=== PATIENT | female | born 1945 | race Caucasian/White ===

== ENCOUNTER 2017-02-14 21:27 | Emergency (ER) | payer OTHER ==
[2017-02-14] MEDS ORDERED: diphenhydrAMINE HCL 50 MG CAPSULE PO ONE (21:36)
--- NOTE | 2017-02-14 21:36 | PDOC ---
History of Present Illness - General History Source: Patient Exam Limitations: No Limitations - History of Present Illness Initial Comments: 02/14/17 21:44 The patient is a 71 year old female, with a significant past medical history of hypertension, hyperlipidemia, and breast cancer, who presents to the emergency department complaining of a rash s/p bug bite at approximately 13:00. Patient reports she was outside and was bitten by a small black bug with a stinger. Initially patient reports she noted a small bump where the bug bit her with minimal erythema. As the day went on the patient reports associated itching and increased erythema, and warmth at the site of the bite. She denies any associated fever or chills. She denies any chest pain, shortness of breath, diaphoresis, or palpitations. She denies any recent travel or sick contacts. Patient reports she has not taken anything for the rash. PAST MEDICAL HISTORY: HTN, HLD, Breast CA PAST SURGICAL HISTORY: Oophorectomy FAMILY HISTORY: no pertinent history SOCIAL HISTORY: Pt lives with family and is employed. MEDICATIONS: reviewed ALLERGIES: As per nursing notes PCP: Dr. Chris General: No fevers or chills, no weakness, no weight loss HEENT: No change in vision. No sore throat,. No ear pain CardioVascular: No chest pain or shortness of breath Respiratory: No cough, or wheezing. Gastrointestinal: no nausea, vomiting, diarrhea or constipation, No rectal bleeding Genitourinary: No dysuria, hematuria, or frequency Musculoskeletal: No joint or muscle pain or swelling Neurologic: No headache, vertigo, dizziness or loss of consciousness Psychiatric: No depression Skin: Yes: +Rash to the right forearm, +erythema and warmth to the right forearm. No other rashes or easy bruising Endocrine: No increased thirst or abnormal weight change Allergic: Yes: +Rash to the right forearm. No other skin or latex allergy All other systems reviewed and normal GENERAL: The patient is awake, alert, and fully oriented, in no acute distress. HEAD: Normal with no signs of trauma. EYES: Pupils equal, round and reactive to light, extraocular movements intact, sclera anicteric, conjunctiva clear. EXTREMITIES: Normal range of motion, no edema. NEUROLOGICAL: Normal speech, normal gait. PSYCH: Normal mood, normal affect. SKIN: Area of erythema with slight edema and mild increase in warmth in the right proximal forearm. There is no tenderness on palpation. There is no ascending lymphangitis or lymphadenopathy. Otherwise Warm, Dry, normal turgor, no rashes or lesions noted. <Keke Moran - Last Filed: 02/14/17 21:45> - General History Source: Patient Exam Limitations: No Limitations - History of Present Illness Initial Comments: 02/14/17 21:49 A portion of this note was documented by scribe services under my direction. I have reviewed the details of the note, within reason, and agree with the documentation. The case summary and management plan written by me. Assessment and plan: This is a 71-year-old female who comes in his complaining of some redness and swelling after being stung by an insect. Patient appears to be experiencing an ALLERGIC reaction. It does not appear to be cellulitic component of it at this time. However patient was given a prescription for Bactrim in case her symptoms worsened. Patient has a primary care doctor she can follow-up with. <Pauline Jama I - Last Filed: 02/14/17 21:50> - General Chief Complaint: Bite Stated Complaint: BIT BY BUG TO RIGHT FOREARM Time Seen by Provider: 02/14/17 21:32 Past History <Keke Moran - Last Filed: 02/14/17 21:45> - Past Medical History Cancer: Yes (BREAST) HTN: Yes Hypercholesterolemia: Yes - Surgical History Abdominal Surgery: Yes (oophorectomy) Orthopedic Surgery: Yes (s/p orthopedic surgery) - Immunization History Td Vaccination: Yes Immunization Up to Date: Yes - Psycho/Social/Smoking Cessation Hx Anxiety: No Suicidal Ideation: No Smoking Status: No Smoking History: Former smoker Years of Tobacco Use: 12 Have you smoked in the past 12 months: No Number of Cigarettes Smoked Daily: 0 Hx Alcohol Use: Yes Drug/Substance Use Hx: No Substance Use Type: Alcohol <Pauline Jama I - Last Filed: 02/14/17 21:50> - Past Medical History Allergies/Adverse Reactions: Allergies Allergy/AdvReac Type Severity Reaction Status Date / Time latex Allergy Verified 02/14/17 21:29 Penicillins Allergy Verified 02/14/17 21:29 Home Medications: Ambulatory Orders Losartan 50Mg/Hctz 12.5MG [Hyzaar] 1 tab PO DAILY 09/30/11 Rosuvastatin Calcium [Crestor] 5 mg PO DAILY 02/14/17 Sulfamethoxazole/Trimethoprim [Bactrim DS -] 1 tab PO BID #14 tablet 02/14/17 *Physical Exam - Vital Signs Last Vital Signs Temp Pulse Resp BP Pulse Ox 98.4 F 92 H 16 161/83 99 02/14/17 21:32 02/14/17 21:32 02/14/17 21:32 02/14/17 21:32 02/14/17 21:32 <Keke Moran - Last Filed: 02/14/17 21:45> ED Treatment Course - Medications Given in the ED: ED Medications Discontinued Medications Generic Name Dose Route Start Last Admin Trade Name Rose PRN Reason Stop Dose Admin Diphenhydramine HCl 25 mg 02/14/17 21:36 02/14/17 21:39 Benadryl - PO 02/14/17 21:37 25 mg ONCE ONE Administration <Keke Moran - Last Filed: 02/14/17 21:45> *DC/Admit/Observation/Transfer - Attestations Scribe Attestion: 02/14/17 21:45 Documentation prepared by Keke Moran, acting as medical parasitologist for Pauline Jama MD. <Keke Moran - Last Filed: 02/14/17 21:45> - Discharge Dispostion Admit: No <Pauline Jama I - Last Filed: 02/14/17 21:50> Diagnosis at time of Disposition: Allergic reaction Qualifiers: Encounter type: initial encounter Qualified Code(s): T78.40XA - Allergy, unspecified, initial encounter - Discharge Dispostion Disposition: HOME Condition at time of disposition: Stable - Prescriptions Prescriptions: Sulfamethoxazole/Trimethoprim [Bactrim DS -] 1 tab PO BID #14 tablet - Referrals Referrals: Yamel Chris MD [Primary Care Provider] - - Patient Instructions Additional Instructions: At nighttime U can take Benadryl one tablet every 4 hours if needed for itching and swelling. During the day take Lorie or Claritin until symptoms resolve. I sent a prescription to your pharmacy for Bactrim if you develop a fever or red streaks going up her arm or increased pain get the prescription for the Bactrim filled and take as instructed. Return to the emergency department immediately with ANY new, persistent or worsening symptoms. Continue any medications as previously prescribed by your physician. You should follow up with your primary doctor as soon as possible regarding today's emergency department visit. . Please make sure your doctor reviews the results of your emergency evaluation. Thank you for coming to the Emergency Department today for your care. It was a pleasure to see you today. Please note that your evaluation is INCOMPLETE until you follow-up with your doctor.
[2017-02-14] MEDS ORDERED: diphenhydrAMINE HCL 25 MG CAPSULE (FP) PO ONE (21:37)
[2017-02-14 21:45] VITALS: BP 161/83; PULSE 92; TEMP 98.4
== END 2017-02-14 21:44 | disposition home or self-care (01) ==
LOC: FER 21:27
DX: S50.861A Insect bite (nonvenomous) of right forearm, initial encounter (principal); T78.40XA Allergy, unspecified, initial encounter; Z85.3 Personal history of malignant neoplasm of breast; Z87.891 Personal history of nicotine dependence; I10 Essential (primary) hypertension; E78.00 Pure hypercholesterolemia, unspecified; W57.XXXA Bitten or stung by nonvenomous insect and other nonvenomous arthropods, initial encounter; Y93.89 Activity, other specified; Y92.9 Unspecified place or not applicable
CPT/HCPCS: 99281-25

== ENCOUNTER 2018-09-02 20:11 | Day surgery (SDC) | payer OTHER ==
--- NOTE | 2018-09-02 20:12 | PDOC ---
History of Present Illness - General History Source: Patient Exam Limitations: No Limitations - History of Present Illness Initial Comments: 09/02/18 21:32 The patient is a 72 year old female, with a significant past medical history of HTN, HLD, and breast cancer (23 years ago) who presents to the emergency department with 2 days of abdominal pain. The patient describes her pain as discomfort that started in her periumbilical region and radiated to her right lower quadrant. The patient states her pain is sensitive only to touch. The patient reports she went dancing on Tuesday and was twisting and dancing throughout the night. The patient denies fever, chills, nausea, vomit, diarrhea or constipation. The patient denies dysuria, frequency, urgency or hematuria. Allergies: latex, penicillins, Past surgical history:None reported Social history: no alcohol use. Former smoker PCP: Yamel Silva <Krystyna Melara - Last Filed: 09/02/18 21:48> <Coral Rosenberg - Last Filed: 09/03/18 05:35> - General Chief Complaint: Pain, Acute Stated Complaint: RLQ ABD PAIN Past History <Krystyna Melara - Last Filed: 09/02/18 21:48> - Past Medical History Cancer: Yes (BREAST) HTN: Yes Hypercholesterolemia: Yes - Surgical History Abdominal Surgery: Yes (oophorectomy) Orthopedic Surgery: Yes (s/p orthopedic surgery) - Immunization History Td Vaccination: Yes Immunization Up to Date: Yes - Suicide/Smoking/Psychosocial Hx Smoking Status: No Smoking History: Former smoker Years of Tobacco Use: 12 Have you smoked in the past 12 months: No Number of Cigarettes Smoked Daily: 0 Hx Alcohol Use: Yes Drug/Substance Use Hx: No Substance Use Type: Alcohol <Coral Rosenberg - Last Filed: 09/03/18 05:35> - Past Medical History Allergies/Adverse Reactions: Allergies Allergy/AdvReac Type Severity Reaction Status Date / Time latex Allergy Verified 02/14/17 21:29 Penicillins Allergy Verified 02/14/17 21:29 Home Medications: Ambulatory Orders Losartan 50Mg/Hctz 12.5MG [Hyzaar] 1 tab PO DAILY 09/30/11 Rosuvastatin Calcium [Crestor] 10 mg PO DAILY 02/14/17 Review of Systems - Review of Systems Able to Perform ROS?: Yes Comments:: 09/02/18 21:33 GENERAL/CONSTITUTIONAL: No fever or chills. No weakness. HEAD, EYES, EARS, NOSE AND THROAT: No change in vision. No ear pain or discharge. No sore throat. CARDIOVASCULAR: No chest pain or shortness of breath. RESPIRATORY: No cough, wheezing, or hemoptysis. GASTROINTESTINAL: No nausea, vomiting, diarrhea or constipation. GENITOURINARY: No dysuria, frequency, or change in urination. ABDOMEN: (+) periumbilical discomfort. (+) RLQ discomfort. MUSCULOSKELETAL: No joint or muscle swelling or pain. No neck or back pain. SKIN: No rash NEUROLOGIC: No headache, vertigo, loss of consciousness, or change in strength/ sensation. ENDOCRINE: No increased thirst. No abnormal weight change. HEMATOLOGIC/LYMPHATIC: No anemia, easy bleeding, or history of blood clots. ALLERGIC/IMMUNOLOGIC: No hives or skin allergy. All Other Systems: Reviewed and Negative <Krystyna Melara - Last Filed: 09/02/18 21:48> *Physical Exam - Vital Signs Last Vital Signs Temp Pulse Resp BP Pulse Ox 98 F 98 H 16 158/72 100 09/02/18 20:16 09/02/18 20:16 09/02/18 20:16 09/02/18 20:16 09/02/18 20:16 - Physical Exam Comments: 09/02/18 21:33 GENERAL: Awake, alert, and fully oriented, in no acute distress HEAD: No signs of trauma EYES: PERRLA, EOMI, sclera anicteric, conjunctiva clear ENT: Auricles normal inspection, hearing grossly normal, nares patent, oropharynx clear without exudates. Moist mucosa NECK: Normal ROM, supple, no lymphadenopathy, JVD, or masses LUNGS: Breath sounds equal, clear to auscultation bilaterally. No wheezes, and no crackles HEART: Regular rate and rhythm, normal S1 and S2, no murmurs, rubs or gallops ABDOMEN: (+) tenderness to palpation of RLQ without masses.(+) moderate direct tenderness, minimal rebound tenderness RLQ. No reproduction of pain with contraction of abdominal muscles. Distended, Soft, nontender, normoactive bowel sounds. No guarding. No masses EXTREMITIES: Normal range of motion, no edema. No clubbing or cyanosis. No cords, erythema, or tenderness NEUROLOGICAL: Cranial nerves II through XII grossly intact. Normal speech, normal gait SKIN: Warm, Dry, normal turgor, no rashes or lesions noted. <Krystyna Melara - Last Filed: 09/02/18 21:48> Moderate Sedation - Procedure Monitoring Vital Signs: Procedure Monitoring Vital Signs Temperature 98 F 09/02/18 20:16 Pulse Rate 98 H 09/02/18 20:16 Respiratory Rate 16 09/02/18 20:16 Blood Pressure 158/72 09/02/18 20:16 O2 Sat by Pulse Oximetry (%) 100 09/02/18 20:16 <Krystyna Melara - Last Filed: 09/02/18 21:48> ED Treatment Course - LABORATORY CBC & Chemistry Diagram: 09/02/18 21:30 09/02/18 21:30 - ADDITIONAL ORDERS Additional order review: Laboratory Results 09/02/18 20:15 Urine Color Yellow Urine Appearance Clear Urine pH 7.0 Urine Protein Negative Urine Glucose (UA) Negative Urine Ketones Trace Urine Blood Trace-intact Urine Nitrite Negative Urine Bilirubin Negative Urine Urobilinogen 0.2 Ur Leukocyte Esterase 2+ Urine WBC (Auto) 10-20 Urine RBC (Auto) 2-5 U Epithel Cells (Auto) Few <Krystyna Melara - Last Filed: 09/02/18 21:48> - LABORATORY CBC & Chemistry Diagram: 09/02/18 21:30 09/02/18 21:30 <Coral Rosenberg - Last Filed: 09/03/18 05:35> Progress Note - Progress Note Progress Note: Documentation has been prepared under my direction and personally reviewed by me in its entirety. I attest that this documented accurately reflects all work, treatment, procedures and medical decision making performed by me. <Coral Rosenberg - Last Filed: 09/03/18 05:35> Medical Decision Making - Medical Decision Making 09/03/18 00:32 As noted above, 72-year-old woman with a history of HTN/HLD present with 2 days of increasing discomfort in her abdomen. No other associated symptoms. Exam as noted. Laboratory evaluation including CBC/ chemistry profile/INR/UA was essentially normal except for BUN 23/cre 0.8 Abd/pelvic CT performed :preliminary interpretation by Imaging ton cylinder inspector- Enlarged appendix up to 1.2 cm with wall thickening and surrounding inflammatory changes compatible with acute appendicitis Results discussed with the patient. She is unaware of the type of allergic reaction she experienced with penicillin(she was young child) but she has had Keflex in the past without allergic reaction . Rocephin 1 gram IV ordered Case discussed with patient's PMD, Dr Chris. She will admit patient with general surgery consult to [facility]. Case discussed with Dr Hernandez who will see the patient at [facility] 12 lead EKG performed: NSR at 92/min Intervals, axis, waveforms are all normal. No evidence of acute ST or T wave abnormalities. No evidence of cardiac arrythmia <Coral Rosenberg - Last Filed: 09/03/18 05:35> *DC/Admit/Observation/Transfer - Attestations Physician Attestion: 09/02/18 21:43 Documentation prepared by Krystyna Melara, acting as medical pathologist for Coral Rosenberg MD <Krystyna Melara - Last Filed: 09/02/18 21:48> - Discharge Dispostion Decision to Admit order: Yes <Coral Rosenberg - Last Filed: 09/03/18 05:35> Diagnosis at time of Disposition: Acute appendicitis Qualifiers: Acute appendicitis type: with localized peritonitis Appendicitis gangrene presence: without gangrene Appendicitis perforation presence: without perforation Appendicitis abscess presence: without abscess Qualified Code(s): K35.30 - Acute appendicitis with localized peritonitis, without perforation or gangrene - Discharge Dispostion Condition at time of disposition: Stable
[2018-09-02 21:08] LABS: EPI CELLS FEW /HPF
[2018-09-02 21:41] LABS: BASO % 0.4 % (0-2.0); EOS % 1.5 % (0-4.5); HEMATOCRIT 40.6 % (32.4-45.2); HEMOGLOBIN 13.4 GM/dl (10.7-15.3); LYMPH % 35.1 % (8-40); MCH 30.1 pg (25.7-33.7); MCHC 32.9 g/dl (32.0-36.0); MEAN CELL VOLUME 91.4 fl (80-96); MEAN PLT VOLUME 8.6 fl (7.5-11.1); MONO % 9.3 % (3.8-10.2); NEUT % 53.7 % (42.8-82.8); PLATELET COUNT 243 K/MM3 (134-434); RBC 4.44 M/mm3 (3.60-5.2); RDW 13.1 % (11.6-15.6); WHITE BLOOD COUNT 6.8 K/mm3 (4.0-10.8)
[2018-09-02 21:50] LABS: INR 1.07 (0.82-1.09)
[2018-09-02 21:58] LABS: ALBUMIN 3.8 g/dl (3.4-5.0); ALK PHOS 83 U/L (45-117); ANION GAP 10 MMOL/L (8-16); BILIRUBIN,TOTAL 0.6 mg/dl (0.2-1); BLOOD UREA NITROGEN 23 mg/dl (7-18); CALCIUM 8.8 mg/dl (8.5-10); CHLORIDE 103 mmol/L (98-107); CO2 26 mmol/L (21-32); CREATININE 0.8 mg/dl (0.55-1.3); GLUCOSE,RANDOM 109 mg/dl (74-106); SGOT/AST 19 U/L (15-37); SGPT/ALT 15 U/L (13-61); SODIUM 139 mmol/L (136-145); TOT PROT 6.2 g/dl (6.4-8.2)
[2018-09-02] MEDS ORDERED: SODIUM CHLORIDE 1,000 ML IV STA (23:08)
[2018-09-03] MEDS ORDERED: CEFTRIAXONE 1 GM in DEXTROSE 5%-WATER - 100 ML IVPB ONE (00:26)
[2018-09-03] MEDS ORDERED: HYDROmorphone HCL CARPU-JECT 1 MG/1 ML DISP.SYRIN IM PRN (00:26)
[2018-09-03] MEDS ORDERED: cefTRIAXone SODIUM 1 GM VIAL ONE (00:26)
[2018-09-03] MEDS ORDERED: D5-1/2NS+10 MEQ KCL - 10 MEQ/1,000 ML INFUS.BAG IV SCH (00:30)
[2018-09-03] MEDS: METOPROLOL TARTRATE 25 MG TABLET (FP) PO SCH ×3 (07:58→21:42)
--- NOTE | 2018-09-03 08:00 | HP ---
Admitting History and Physical - Admission Chief Complaint: right lower quadrant abdominal pain History of Present Illness: 72 yo female in her usual state of health developed over the past 3 days right lower quadrant abdominal pain associated with complaints of not feeling well. She was evaluated in ER and diagnosed with appendicitis. There was no fever, nausea of vomiting History Source: Patient Limitations to Obtaining History: No Limitations - Past Medical History Cardiovascular: Yes: HTN, Hyperlipdemia Reproductive: Yes: Postmenopausal ...: No Psych: Yes: Anxiety - Past Surgical History Past Surgical History: Yes: Mastectomy (left lumpectomy, and lymphadenectomy left axilla), Oopherectomy (bilateral) Additional Past Surgical History: right THR, Right shoulder repair - Advance Directives Advance Directives: Yes: Living Will, Health Care Proxy - Smoking History Smoking history: Former smoker Have you smoked in the past 12 months: No Aproximately how many cigarettes per day: 0 If you are a former smoker, when did you quit?: 1972 - Alcohol/Substance Use Hx Alcohol Use: Yes - Social History Usual Living Arrangement: Yes: With Spouse History of Recent Travel: No Home Medications - Allergies Allergies/Adverse Reactions: Allergies Allergy/AdvReac Type Severity Reaction Status Date / Time latex Allergy Verified 02/14/17 21:29 Penicillins Allergy Verified 02/14/17 21:29 Sulfa (Sulfonamide Allergy Verified 09/03/18 08:09 Antibiotics) sulfa Allergy Intermediate Uncoded 09/03/18 08:09 - Home Medications Home Medications: Ambulatory Orders Losartan 50Mg/Hctz 12.5MG [Hyzaar] 1 tab PO DAILY 09/30/11 Rosuvastatin Calcium [Crestor] 10 mg PO DAILY 02/14/17 Review of Systems - Review of Systems Constitutional: reports: Other ("not feeling well") Eyes: reports: No Symptoms HENT: reports: No Symptoms Neck: reports: No Symptoms Cardiovascular: reports: No Symptoms Respiratory: reports: No Symptoms Gastrointestinal: reports: Abdominal Pain Genitourinary: reports: No Symptoms Breasts: reports: No Symptoms Reported Integumentary: reports: Other (atopic dermatitis lesions right shoulder and anterior abdomen) Neurological: reports: No Symptoms Endocrine: reports: No Symptoms Psychiatric: reports: No Symptoms Physical Examination Vital Signs: Vital Signs Temperature 98 F 09/03/18 07:22 Pulse Rate 91 H 09/03/18 07:22 Respiratory Rate 18 09/03/18 07:22 Blood Pressure 171/78 H 09/03/18 07:22 O2 Sat by Pulse Oximetry (%) 96 09/03/18 06:00 Constitutional: Yes: Well Nourished, No Distress, Calm Eyes: Yes: WNL HENT: Yes: Atraumatic, Normocephalic Neck: Yes: Supple, Trachea Midline Cardiovascular: Yes: Regular Rate and Rhythm, S1, S2 Respiratory: Yes: Regular, CTA Bilaterally Gastrointestinal: Yes: Normal Bowel Sounds, Soft, Abdomen, Obese, Tenderness ( on the right lower quadrant, rebound tenderness in McBurney point) Musculoskeletal: Yes: WNL Extremities: Yes: Other (varicose veins). No: Calf Tenderness Edema: No Peripheral Pulses WNL: Yes Integumentary: Yes: Rash (right shoulder and abdominal rash -old due to atopic dermatitis) Neurological: Yes: Alert, Oriented Psychiatric: Yes: Alert, Oriented Labs: CBC, BMP 09/02/18 21:30 09/02/18 21:30 Imaging - Results X-ray: Other (read by me: no pleural effusin , no infiltrate, no mass) Cat Scan: Other (Ct scan of the abdomen official reading pending) EKG: Other (nsr, 92 b/min, ROBERT, poor R wave progression, non specific ST-T changes, unchanged complared to previous EKG) Problem List - Problems (1) Acute appendicitis Assessment/Plan: NPO D5 1/2 and 10 Charlotte KCL at 75 cc/hr surgical consult Metoprolol 25 mg po bid, hold Losartan Code(s): K35.80 - UNSPECIFIED ACUTE APPENDICITIS Qualifiers: Acute appendicitis type: with localized peritonitis Appendicitis gangrene presence: without gangrene Appendicitis perforation presence: without perforation Appendicitis abscess presence: without abscess Qualified Code(s) : K35.30 - Acute appendicitis with localized peritonitis, without perforation or gangrene (2) HTN (hypertension) Code(s): I10 - ESSENTIAL (PRIMARY) HYPERTENSION (3) Breast cancer Assessment/Plan: S/p lumpectomy requires DVT prophylaxis Code(s): C50.919 - MALIGNANT NEOPLASM OF UNSP SITE OF UNSPECIFIED FEMALE BREAST Assessment/Plan 72 yo female with PMH of HTN, Dyslipidemia and Breast cancer, normal cardiac EF within the past year( as per patient) The patient is scheduled for appendectomy. The patient sis CLASS II ASA medically clear for surgery.
[2018-09-03] MEDS ORDERED: PROPOFOL 20 ML ONE (08:49)
[2018-09-03] MEDS ORDERED: ROCURONIUM BROMIDE 50 MG/5 ML VIAL ONE (08:49)
[2018-09-03] MEDS ORDERED: MIDAZOLAM HCL 2 MG/2 ML SINGLE DOSE VIAL ONE (08:49)
[2018-09-03] MEDS ORDERED: SUCCINYLCHOLINE CHLORIDE 200 MG/10 ML VIAL ONE (08:49)
[2018-09-03 09:51] LABS: ALBUMIN 3.8 g/dl (3.4-5.0); ALK PHOS 74 U/L (45-117); ANION GAP 11 MMOL/L (8-16); BILIRUBIN,TOTAL 0.8 mg/dl (0.2-1); BLOOD UREA NITROGEN 14 mg/dl (7-18); CALCIUM 8.9 mg/dl (8.5-10); CHLORIDE 104 mmol/L (98-107); CO2 26 mmol/L (21-32); CREATININE 0.7 mg/dl (0.55-1.3); GLUCOSE,RANDOM 105 mg/dl (74-106); POTASSIUM 3.6 mmol/L (3.5-5.1); SGOT/AST 19 U/L (15-37); SGPT/ALT 15 U/L (13-61); SODIUM 141 mmol/L (136-145); TOT PROT 6.4 g/dl (6.4-8.2)
[2018-09-03] MEDS ORDERED: NEOSTIGMINE METHYLSULFATE 0.5 MG/ML - 10 ML MDV ONE (10:43)
[2018-09-03] MEDS ORDERED: CEFTRIAXONE 1 GM in DEXTROSE 5%-WATER - 50 ML IVPB ONE (10:45)
[2018-09-03] MEDS ORDERED: cefTRIAXone SODIUM 1 GM VIAL IVPB ONE (10:46)
[2018-09-03] MEDS ORDERED: GLYCOPYRROLATE 0.2 MG/1 ML VIAL ONE (10:47)
[2018-09-03] MEDS ORDERED: ONDANSETRON 4 MG/2 ML VIAL IVPUSH PRN (11:30)
[2018-09-03] MEDS ORDERED: LACTATED RINGERS SOLUTION 1,000 ML IV SCH (11:30)
[2018-09-03] MEDS ORDERED: LABETALOL HCL 5 MG/1 ML (100MG/20 ML VIAL) IVPUSH ONE (11:31)
--- NOTE | 2018-09-03 12:01 | CONS ---
DATE OF CONSULTATION: 09/03/2018 REFERRING PHYSICIAN: Yamel Chris MD REASON FOR REFERRAL: Acute appendicitis. BRIEF HISTORY: This is a 72-year-old female with a 3-day history of progressive abdominal discomfort. She presented to the emergency room at [facility] and CT demonstrated findings consistent with acute appendicitis. PAST MEDICAL HISTORY: Significant for hyperlipidemia, hypertension. PAST SURGICAL HISTORY: She has had a left lumpectomy with lymphadenectomy on the left side, followed by radiation and chemotherapy. She has had bilateral oophorectomy done laparoscopically. She has had right hip surgery as well as right and left shoulder surgery. ALLERGIES: PENICILLIN. Patient had a dose of Rocephin without issues in [place] [facility]. SOCIAL HISTORY: The patient does not smoke. She drinks socially. PHYSICAL EXAMINATION: Abdomen is soft, nondistended. It is tender in the right lower quadrant with guarding, plus/minus rebound. IMPRESSION/PLAN: Acute appendicitis. This is a 72-year-old female with radiographic findings for acute appendicitis. She will undergo an appendectomy. The patient was seen at the [place] ER and that hospital does not do emergent operations and, therefore, the patient will be transferred to [facility]. Following the operation, she will most likely be transferred back to [place] for further management and care. CRYSTAL MOY M.D. [id number] cc: Yamel Chris MD
[2018-09-03] MEDS ORDERED: D5-1/2NS+20 MEQ KCL - 20 MEQ/1,000 ML INFUS.BAG IV SCH (13:00)
[2018-09-03] MEDS ORDERED: morphine CARPU-JECT 4 MG/1 ML DISP.SYRIN IVPB PRN ×2 (13:07→13:08)
[2018-09-03] MEDS ORDERED: oxyCODONE HCL 5 MG TABLET PO PRN (13:08)
--- NOTE | 2018-09-03 18:34 | OP ---
DATE OF OPERATION: 09/03/2018 PREOPERATIVE DIAGNOSIS: Acute appendicitis. POSTOPERATIVE DIAGNOSIS: Acute appendicitis. PROCEDURE: Laparoscopic appendectomy, laparoscopic partial colectomy, laparoscopic lavage. SURGEON: Juan Hernandez MD [employer] OPERATOR: None. ANESTHESIA: Nestor Gupta MD (general0 ESTIMATED BLOOD LOSS: Minimal. SPECIMEN: Appendix with portion of cecum. INDICATION FOR PROCEDURE: This is a 72-year-old female admitted with radiographic findings consistent with acute appendicitis and right lower quadrant pain. She is here for appendectomy. Patient identified, appropriately positioned on the operating room table. After placement of general anesthesia, the abdomen prepped and draped in the usual sterile fashion with ChloraPrep.A supraumbilical incision was made, deepened through subcutaneous tissue. The fascia was divided sharply under direct visualization. A Veress, followed by a structural needle placed. The remaining 2 ports placed under direct vision as well. The appendix had been identified in the right lower quadrant. The appendix had findings consistent with acute appendicitis. The mesoappendix was divided with LigaSure device with 4 welds placed prior to complete division. The appendix itself was divided at its base, along with a portion of the cecum due to the inflamed portion of the appendix that could not be stapled just at the base. This was done with an EndoGIA 3.8-mm stapler (purple); 1 load was used. The specimen was placed in an EndoCatch bag and brought through the supraumbilical port site. The right lower quadrant irrigated, the operative field noted to be hemostatic. The staple line grossly intact without gross break. The omentum was placed over the staple line and placed back into the right lower quadrant. Ports removed, port sites hemostatic. The fascia at the supraumbilical port site and suprapubic port site were reapproximated with interrupted 0 Vicryl suture. All skin closed with 4-0 subcuticular Biosyn, followed by Dermabond. At the conclusion of this case, sponge counts correct. ATTESTATION: Brief operative note handwritten on the preprinted form. [facility] queried prior to giving any narcotics. Jaspal ZAVALETA [id number] cc: Yamel Chris MD [facility]
[2018-09-03] MEDS: FAMOTIDINE 20 MG/50 ML IVPB 20 MG/50 ML MG IVPB SCH (21:42)
[2018-09-03] MEDS ORDERED: CEFTRIAXONE 1 GM in DEXTROSE 5%-WATER - 50 ML IVPB SCH (22:00)
[2018-09-03] MEDS: CEFTRIAXONE 1 G/50 ML PREMIX 50 ML IVPB SCH (22:20)
--- NOTE | 2018-09-03 23:47 | EKG ---
Test Reason : Blood Pressure : / mmHG Vent. Rate : 086 BPM Atrial Rate : 086 BPM P-R Int : 118 ms QRS Dur : 094 ms QT Int : 398 ms P-R-T Axes : 045 008 025 degrees QTc Int : 476 ms POOR DATA QUALITY, INTERPRETATION MAY BE ADVERSELY AFFECTED NORMAL SINUS RHYTHM NORMAL ECG WHEN COMPARED WITH ECG OF 03-SEP-2018 00:57, NO SIGNIFICANT CHANGE WAS FOUND Confirmed by BO HARRISON, KADNE ([id number]) on 09/03/2018 11:47:39 PM Referred By: [email or web address] Confirmed By:KADEN SORIANO MD
--- NOTE | 2018-09-03 23:48 | EKG ---
Test Reason : Blood Pressure : / mmHG Vent. Rate : 092 BPM Atrial Rate : 092 BPM P-R Int : 140 ms QRS Dur : 090 ms QT Int : 392 ms P-R-T Axes : 053 020 020 degrees QTc Int : 484 ms NORMAL SINUS RHYTHM NORMAL ECG WHEN COMPARED WITH ECG OF 25-FEB-1998 11:24, QT HAS LENGTHENED Confirmed by KADEN SORIANO MD ([id number]) on 09/03/2018 11:47:57 PM Referred By: MD CLEMENT Confirmed By:KADEN SORIANO MD
[2018-09-04 08:42] LABS: ALBUMIN 3.7 g/dl (3.4-5.0); ALK PHOS 66 U/L (45-117); ANION GAP 9 MMOL/L (8-16); BILIRUBIN,TOTAL 0.7 mg/dl (0.2-1); BLOOD UREA NITROGEN 9 mg/dl (7-18); CALCIUM 9.2 mg/dl (8.5-10); CHLORIDE 102 mmol/L (98-107); CO2 27 mmol/L (21-32); CREATININE 0.7 mg/dl (0.55-1.3); GLUCOSE,RANDOM 113 mg/dl (74-106); POTASSIUM 3.6 mmol/L (3.5-5.1); SGOT/AST 19 U/L (15-37); SGPT/ALT 14 U/L (13-61); SODIUM 138 mmol/L (136-145); TOT PROT 6.1 g/dl (6.4-8.2)
[2018-09-04] MEDS ORDERED: morphine SULFATE 4 MG/ML VIAL IVPB PRN ×2 (08:45)
[2018-09-04 09:36] LABS: BASO % 0.3 % (0-2.0); EOS % 0.3 % (0-4.5); HEMATOCRIT 36.6 % (32.4-45.2); HEMOGLOBIN 12.8 GM/dL (10.7-15.3); LYMPH % 28.4 % (8-40); MCH 31.6 pg (25.7-33.7); MCHC 35.1 g/dl (32.0-36.0); MEAN CELL VOLUME 89.9 fl (80-96); MEAN PLT VOLUME 9.3 fl (7.5-11.1); MONO % 9.8 % (3.8-10.2); NEUT % 61.2 % (42.8-82.8); PLATELET COUNT 226 K/MM3 (134-434); RBC 4.07 M/mm3 (3.60-5.2); RDW 13.7 % (11.6-15.6); WHITE BLOOD COUNT 8.3 K/mm3 (4.0-10.0)
[2018-09-04 09:45] VITALS: TEMP 97.6
[2018-09-04] MEDS: METOPROLOL TARTRATE 25 MG TABLET (FP) PO SCH (09:49)
[2018-09-04] MEDS: CEFTRIAXONE 1 G/50 ML PREMIX 50 ML IVPB SCH (09:50)
[2018-09-04] MEDS ORDERED: LOSARTAN POTASSIUM 50 MG TABLET (FP) PO SCH (10:00)
[2018-09-04] MEDS ORDERED: ENOXAPARIN NA (PORCINE) 40 MG/0.4 ML DISP.SYRIN SQ SCH (10:00)
[2018-09-04] MEDS: FAMOTIDINE 20 MG/50 ML IVPB 20 MG/50 ML MG IVPB SCH (10:05)
[2018-09-04 11:19] VITALS: BP 137/52; PULSE 67
--- NOTE | 2018-09-04 15:42 | DS ---
Physical Examination Vital Signs: Vital Signs Temperature 97.6 F 09/04/18 09:43 Pulse Rate 67 09/04/18 11:00 Respiratory Rate 18 09/04/18 09:43 Blood Pressure 137/52 L 09/04/18 11:00 O2 Sat by Pulse Oximetry (%) 100 09/04/18 09:43 Constitutional: Yes: No Distress, Calm Eyes: Yes: Conjunctiva Clear, EOM Intact HENT: Yes: Atraumatic, Normocephalic Neck: Yes: Supple, Trachea Midline Cardiovascular: Yes: Regular Rate and Rhythm, S1, S2 Respiratory: Yes: Regular, CTA Bilaterally Gastrointestinal: Yes: Normal Bowel Sounds, Soft, Abdomen, Obese (distended, no temderness). No: Hepatomegaly, Splenomegaly Extremities: No: Calf Tenderness Edema: No Labs: CBC, BMP 09/04/18 06:55 09/04/18 06:55 Discharge Summary Reason For Visit: ACUTE APPENDICITIS Current Active Problems Acute appendicitis (Acute) Breast cancer (Acute) HTN (hypertension) (Acute) Condition: Stable - Instructions Referrals: Juan Hernandez MD [Staff Physician] - 2 Weeks - Home Medications Comprehensive Discharge Medication List: Ambulatory Orders Losartan Potassium [Cozaar -] 25 mg PO DAILY tablet 09/04/18 Rosuvastatin [Crestor -] 10 mg PO HS tablet 09/04/18
[2018-09-04] MEDS ORDERED: ROSUVASTATIN CA 20 MG TABLET (FP) PO SCH (22:00)
--- NOTE | 2018-09-05 15:18 | PATH ---
Surgical Pathology Report Patient Name: MARGY WHEELER Med. Rec. #: [id number] /Age/Gender: 1945 (Age: 72) / F Account: <[id number]> Location: [facility] Taken: 09/03/2018 Received: 09/04/2018 Reported: 09/05/2018 Physicians: Juan Hernandez PHYSICIAN EMERGENCY DEPT Specimen(s) Received APPENDIX AND PORTION OF CECUM Clinical History Acute appendicitis Final Diagnosis APPENDIX, APPENDECTOMY: APPENDIX WITH INFLAMED DIVERTICULUM AT TIP OF APPENDIX. Electronically Signed Tamir Alaniz M.D. Gross Description Received in formalin, labeled "appendix," is a 5 cm. in length vermiform appendix with a stapled margin of resection and moderate attached fat. The serosa is [place] with attached exudate at the tip. Sectioning reveals an unremarkable lumen with a possible abscess cavity at the tip. The wall of the appendix averages 0.1 cm. in thickness. Analytical Scientist sections are submitted in one cassette. /09/04/2018 saudi09/04/2018
== END 2018-09-04 16:07 | disposition home or self-care (01) ==
LOC: FER 20:11 → JSAMEDAYSX 09-03 01:25 → UNDOADMIN 09-03 01:25 → FM/S 09-03 01:25 → FER 09-03 01:35 → JSAMEDAYSX 09-03 14:00 → FM/S 09-03 14:00 → FASUSAT 09-03 16:51 → FM/S 09-03 16:57 → FASUSAT 09-03 17:00 → FM/S 09-03 17:01 → UNDOADMIN 09-03 17:01 → FASUSAT 09-04 16:07
PROVIDERS: ATTEND Internal Medicine
PROC: 0DTJ4ZZ Resection of Appendix, Percutaneous Endoscopic Approach (ICD-10-PCS; 2018-09-03)
PROC: 0DBH4ZZ Excision of Cecum, Percutaneous Endoscopic Approach (ICD-10-PCS; principal; 2018-09-03 09:00)
DX: K35.80 Unspecified acute appendicitis (principal); I10 Essential (primary) hypertension; E78.5 Hyperlipidemia, unspecified; Z85.3 Personal history of malignant neoplasm of breast; Z92.21 Personal history of antineoplastic chemotherapy; Z92.3 Personal history of irradiation; Z88.0 Allergy status to penicillin; Z88.2 Allergy status to sulfonamides; Z87.891 Personal history of nicotine dependence; Z91.040 Latex allergy status
CPT/HCPCS: 36415; 71045-TC-FY; 74177-TC; 80053; 81015; 85025; 85610; 87086; 88304-TC; 93005; 94760; J7030